=== PATIENT | female | born 1945 | race Caucasian/White ===

== ENCOUNTER → 2019-01-08 | Outpatient (CLI) | payer OTHER | END | disposition home or self-care (01) | LOC: OIH 10:58 → EDBD 10:58 | PROVIDERS: ATTEND Internal Medicine Cardiovascular Disease | DX: Z13.6 Encounter for screening for cardiovascular disorders (principal) | CPT/HCPCS: 75571 ==

== ENCOUNTER 2019-02-02 07:42 | Day surgery (SDC) | payer MEDICARE ==
[2019-01-30 12:13] VITALS: BP 176/73
[2019-01-30 12:20] LABS: BASOPHILS % (AUTO) 1.3 % (0.0-5.0); HEMATOCRIT 38.9 % (36-48); LYMPHOCYTES % (AUTO) 29.2 % (21.0-51.0); MEAN CORPUSCULAR HEMOGLOBIN 31.5 pg (27.0-33.0); MEAN CORPUSCULAR HGB CONC 33.7 g/dL (32.0-36.0); MEAN CORPUSCULAR VOLUME 93.5 fL (79-99); MONOCYTES % (AUTO) 7.9 % (3.0-13.0); NEUTROPHILS % (AUTO) 59.6 % (40.0-77.0); PLATELET COUNT (AUTO) 339 K/uL (130-400); RED BLOOD CELL COUNT(AUTO) 4.16 MIL/uL (4.00-5.50); RED CELL DISTRIBUTION WIDTH 13.5 % (11.0-15.5); WHITE BLOOD COUNT (AUTO) 8.6 K/uL (4.8-10.8)
[2019-01-30 12:30] LABS: POTASSIUM 4.4 mmol/L (3.5-5.1)
[2019-01-30 12:49] LABS: APPEARANCE,URINE Clear (CLEAR); BILIRUBIN,URINE Negative (NEGATIVE); COLOR,URINE Yellow (YELLOW); GLUCOSE, URINE (UA) Negative (NEGATIVE); KETONES,URINE Negative (NEGATIVE); LEUKOCYTE ESTERASE ,URINE Trace (NEGATIVE); NITRATE,URINE Negative (NEGATIVE); OCCULT BLOOD,URINE Negative (NEGATIVE); PROTEIN,URINE Negative (NEGATIVE)
[2019-01-30 12:59] LABS: BACTERIA,URINE Rare /HPF (None Seen); RBC,URINE 0-1 /HPF (0-1); SQUAMOUS EPITHELIAL CELL,UR Rare /HPF (0-2); WBC,URINE 0-1 /HPF (0-1)
[2019-01-30 13:09] LABS: INR 0.96 (0.85-1.15); PARTIAL THROMBOPLASTIN TIME 22.6 SEC (26.3-35.5); PROTHROMBIN TIME 10.1 SEC (9.6-11.6)
[~2019-02-02] VITALS: Ht 160 cm; Wt 91.5 kg
[2019-02-02] VITALS (10 sets, daily range): BP systolic 124–171; BP diastolic 54–68
[~2019-02-02 07:42] MED LIST: AMIO200T5 PO; AMLO10TA7 PO; APIX5TAB PO; ATOR40TA71 PO; FEBU80TA PO; LORA10TA7 PO; MAGN100T PO; MAGN400T40 PO; METF500T7 PO; METO-391 PO; OMEP20TA25 PO; SODIUM CHLORIDE 0.9% 1000ML 1,000 ML IV ONE; TELM80TA10 PO
[2019-02-02] MEDS ORDERED: LORA10TA7 PO (08:34)
[2019-02-02] MEDS ORDERED: NITROGLYCERIN 5 MG/ML 10 ML VIAL IV ONE (14:47)
[2019-02-02] MEDS ORDERED: IOHEXOL 350 MG/ML 100ML INFUS..BTL IV ONE (14:47)
[2019-02-02] MEDS ORDERED: LIDOCAINE HCL 2% 20ML ONE (14:47)
[2019-02-02] MEDS ORDERED: IOHEXOL-350 50ML VIAL IV ONE (14:47)
[2019-02-02] MEDS ORDERED: MIDAZOLAM HCL 1 MG/ML 2ML VIAL ONE (16:00)
[2019-02-02] MEDS ORDERED: SODIUM CHLORIDE 0.9% 1000ML 1,000 ML IV SCH (16:44)
[2019-02-02] MEDS ORDERED: GLUCAGON 1MG KIT 1 MG ML IM PRN (16:45)
[2019-02-02] MEDS ORDERED: DEXTROSE 50%-WATER 50 ML DISP.SYRIN IV PRN (16:45)
--- NOTE | 2019-02-02 18:00 | NUR ---
DIET PT TOLERATED DIET WELL. PCP ASSISTED PT.
--- NOTE | 2019-02-02 20:14 | NUR ---
DISCHARGE PT DISCHARGED VIA WHEELCHAIR WITH . PT STABLE. NO COMPLAINTS MADE. CATH SITE TO RIGHT GROIN REMAINS SOFT, DRESSING DRY AND INTACT, NO OOZING NO HEMATOMA NOTED. PT ASSISTED TO BATHROOM, AMBULATED WITHOUT ANY PROBLEMS. VOIDED PRIOR TO DISCHARGE, GOOD AMOUNT. DISCHARGE INSTRUCTIONS GIVEN TO AND PT, ALSO DEMONSTRATED ON HOW TO MONITOR CATH SITE FOR BLEEDING, HEMATOMA, VERBALIZED UNDERSTANDING.
[2019-02-02] MEDS ORDERED: INSULIN HUMULIN R 100 UNIT/ML 3ML SQ SCH (21:00)
== END 2019-02-02 20:14 | disposition home or self-care (01) ==
LOC: DAH 07:42
PROVIDERS: ATTEND Internal Medicine Cardiovascular Disease
DX: I25.10 Atherosclerotic heart disease of native coronary artery without angina pectoris (principal); Z79.899 Other long term (current) drug therapy; I10 Essential (primary) hypertension; E11.9 Type 2 diabetes mellitus without complications; E78.5 Hyperlipidemia, unspecified; E83.42 Hypomagnesemia; Z85.3 Personal history of malignant neoplasm of breast; Z90.12 Acquired absence of left breast and nipple; K21.9 Gastro-esophageal reflux disease without esophagitis; I48.0 Paroxysmal atrial fibrillation; Z79.01 Long term (current) use of anticoagulants; Z79.84 Long term (current) use of oral hypoglycemic drugs; Z90.710 Acquired absence of both cervix and uterus; Z90.49 Acquired absence of other specified parts of digestive tract; Z87.59 Personal history of other complications of pregnancy, childbirth and the puerperium; Z98.890 Other specified postprocedural states; Z88.8 Allergy status to other drugs, medicaments and biological substances
CPT/HCPCS: 36415; 71045; 80048; 81001; 82948 ×3; 85025; 85610; 85730; 93005; 93458; A4606; C1760; C1894; J1644; J2250; J3490 ×2; J7030; Q9965 ×2; Q9967 ×2; 99156; 99157

== ENCOUNTER 2022-12-11 06:23 | Day surgery (SDC) | payer MEDICARE ==
[2022-12-06 14:48] LABS: BASOPHILS % (AUTO) 0.7 % (0.0-5.0); EOSINOPHILS % (AUTO) 0.7 % (0.0-8.0); HEMATOCRIT 39.5 % (36-48); LYMPHOCYTES % (AUTO) 15.8 % (21.0-51.0); MEAN CORPUSCULAR HEMOGLOBIN 30.8 pg (27.0-33.0); MEAN CORPUSCULAR HGB CONC 32.9 g/dL (32.0-36.0); MEAN CORPUSCULAR VOLUME 93.6 fL (79-99); NEUTROPHILS % (AUTO) 74.3 % (40.0-77.0); PLATELET COUNT (AUTO) 466 K/uL (130-400); RED BLOOD CELL COUNT(AUTO) 4.22 MIL/uL (4.00-5.50); WHITE BLOOD COUNT (AUTO) 14.9 K/uL (4.8-10.8)
[2022-12-06 14:51] VITALS: BP 136/86
[2022-12-06 15:04] LABS: INR 1.04 (0.85-1.15); PROTHROMBIN TIME 11.3 SEC (9.6-11.6)
[2022-12-06 15:06] LABS: PARTIAL THROMBOPLASTIN TIME 32.1 SEC (26.3-35.5)
[2022-12-06 15:07] LABS: ALBUMIN 3.7 g/dL (3.5-5.0); MAGNESIUM 1.8 mg/dL (1.80-2.40); POTASSIUM 4.8 mmol/L (3.5-5.1); TOTAL PROTEIN, SERUM 7.5 g/dL (6.0-8.3)
[2022-12-11] VITALS (14 sets, daily range): BP systolic 108–137; BP diastolic 43–88
[~2022-12-11] VITALS: Ht 160 cm; Wt 86.2 kg
[~2022-12-11 06:23] MED LIST changes: -AMIO200T5 PO; +AMLO-257 PO; -AMLO10TA7 PO; +ASCO100031 PO; +CHOL100046 PO; +EZET10TA48 PO; +FAMO20TA8 PO; -FEBU80TA PO; +FEBU80TA3 PO; +FLEC100T3 PO; -LORA10TA7 PO; -MAGN100T PO; -MAGN400T40 PO; +MAGN84TA5 PO; +METF-910 PO; -METF500T7 PO; -OMEP20TA25 PO; -SODIUM CHLORIDE 0.9% 1000ML 1,000 ML IV ONE; -TELM80TA10 PO; +VALS80TA30 PO
[2022-12-11] MEDS ORDERED: 0.9%NACL 1000ML 1,000 ML IV ONE ×2 (07:41→08:24)
[2022-12-11 07:53] LABS: CREATININE 1.1 mg/dL (0.5-1.5); POTASSIUM 4.6 mmol/L (3.5-5.1)
[2022-12-11] MEDS ORDERED: FENTANYL CITRATE PF 50 MCG/1 ML 2ML VIAL ONE (08:24)
[2022-12-11] MEDS ORDERED: MIDAZOLAM HCL 1 MG/ML 2ML VIAL ONE (08:24)
== END 2022-12-11 12:39 | disposition home or self-care (01) ==
LOC: DAH 06:23
PROVIDERS: ATTEND Internal Medicine Cardiovascular Disease
DX: I48.19 Other persistent atrial fibrillation (principal); Z20.822 Contact with and (suspected) exposure to COVID-19; I44.7 Left bundle-branch block, unspecified; I10 Essential (primary) hypertension; E78.5 Hyperlipidemia, unspecified; K21.9 Gastro-esophageal reflux disease without esophagitis; E11.59 Type 2 diabetes mellitus with other circulatory complications; I25.10 Atherosclerotic heart disease of native coronary artery without angina pectoris; E83.42 Hypomagnesemia; Z85.3 Personal history of malignant neoplasm of breast; Z90.12 Acquired absence of left breast and nipple; Z90.89 Acquired absence of other organs; Z90.49 Acquired absence of other specified parts of digestive tract; Z98.891 History of uterine scar from previous surgery; Z90.710 Acquired absence of both cervix and uterus; Z82.49 Family history of ischemic heart disease and other diseases of the circulatory system; Z98.890 Other specified postprocedural states; Z79.01 Long term (current) use of anticoagulants; Z79.899 Other long term (current) drug therapy; Z79.84 Long term (current) use of oral hypoglycemic drugs
CPT/HCPCS: 83735; 80053; 85025; 85610; 85730; 36415 ×2; 92960; 80048; 82948; 93005; J3010; J7030 ×2; J2250; A4615; A4215; A4222; A4221; A4663; A4216; A4606; A4223 ×3; 99152